=== PATIENT | female | born 1980 | race Caucasian/White ===

== ENCOUNTER 2023-11-07 15:13 | Observation (INO) | payer OTHER ==
[2023-11-07] MEDS ORDERED: Sennosides/Docusate Sodium 50-8.6 MG Tab PO PRN (17:24)
[2023-11-07] MEDS: Pantoprazole 40 MG Vial IVPUSH SCH (18:12)
[2023-11-07 19:00] LABS: INFLUENZA A NAA NEGATIVE (NEGATIVE); INFLUENZA B NAA NEGATIVE (NEGATIVE); RESPIRATORY SYNCYTIAL VIR NAA NEGATIVE (NEGATIVE)
[2023-11-07 19:02] LABS: CORONAVIRUS COVID-19 NAA POSITIVE (NEGATIVE)
[2023-11-08] MEDS: Acetaminophen 325 MG Tab PO ONE (00:46)
[2023-11-08] MEDS: Benzocaine/Cetylpyridinium/Menthol Lozenge MUCMEM PRN (00:46)
[2023-11-08] MEDS: Lactated Ringers 1,000 ML IV SCH (00:47)
[2023-11-08 05:57] LABS: HEMATOCRIT 34.1 % (34.3-46.0); HEMOGLOBIN 10.7 g/dL (11.2-15.5); MEAN CORPUSCULAR HEMOGLOBIN 27.3 pg (31.6-35.5); MEAN CORPUSCULAR HGB CONC 31.4 g/dL (31.6-35.5); RED BLOOD CELL COUNT 3.92 M/uL (3.77-5.24)
[2023-11-08 06:21] LABS: A/G RATIO 0.8 (1.2-2.2); ALANINE AMINOTRANSFERASE,ALT 23 U/L (12-78); ALBUMIN 2.9 g/dL (3.4-5.0); ALKALINE PHOSPHATASE 74 U/L (46-116); ASPARTATE AMNIOTRANSFERASE,AST 16 U/L (15-37); BILIRUBIN TOTAL 0.3 mg/dL (0.2-1.0); BLOOD UREA NITROGEN,BUN 10 mg/dL (7-18); CALCIUM 7.8 mg/dL (8.5-10.1); CARBON DIOXIDE,CO2 26 mmol/L (21-32); CHLORIDE,CL 103 mmol/L (100-108); CREATININE 0.7 mg/dL (0.6-1.0); EST CRCL DRUG DOSING (CG) 87.64 mL/min; ESTIMATED GFR 109 mL/min (>60); GLUCOSE RANDOM 89 mg/dL (74-106); MAGNESIUM 1.8 mg/dL (1.8-2.4); PHOSPHORUS 3.9 mg/dL (2.5-4.9); POTASSIUM,K 4.1 mmol/L (3.6-5.2); PROTEIN TOTAL,TP 6.6 g/dL (6.4-8.2); SODIUM,NA 139 mmol/L (140-148)
[2023-11-08 06:25] LABS: ANION GAP 14.1 mmol/L (5.0-14.0)
[2023-11-08] MEDS ORDERED: Levothyroxine 88 MCG Tab PO SCH (07:30)
[2023-11-08] MEDS ORDERED: Escitalopram 10 MG Tab PO SCH (09:00)
[2023-11-08] MEDS ORDERED: Hydrochlorothiazide 25 MG Tab PO SCH (09:00)
[2023-11-08] MEDS ORDERED: Pantoprazole 40 MG Vial IVPUSH SCH (16:00)
== END 2023-11-08 08:18 | disposition home or self-care (01) ==
LOC: JP.SDS 15:13 → MERGE 17:24 → JP.MS 17:24
PROVIDERS: ADMIT Student in an Organized Health Care Education/Training Program; ATTEND Student in an Organized Health Care Education/Training Program
DX: T18.128A Food in esophagus causing other injury, initial encounter (principal); K22.2 Esophageal obstruction; U07.1 COVID-19; I10 Essential (primary) hypertension; Z79.899 Other long term (current) drug therapy
CPT/HCPCS: 0241U; 36415; 43247; 80053; 83735; 84100; 85027; A9270; C9113; G0378; J7120